=== PATIENT | female | born 1990 | race Caucasian/White ===

== ENCOUNTER 2024-01-25 10:57 | Emergency (ER) | payer MEDICAID, SELFPAY ==
[2024-01-25 11:18] VITALS: BP 137/65; PULSE 93; RESP 18; TEMP 36.8; O2SAT 98
[2024-01-25 11:21] VITALS: BP 109/72; PULSE 81; RESP 16; O2SAT 98
--- NOTE | 2024-01-25 11:46 | ED_ITS ---
HPI - Skin/Abscess/Foreign Bdy General: Chief complaint: Skin/Abscess/Foreign Body Stated complaint: spider bite Time Seen by Provider: 01/25/24 11:06 History of Present Illness: 33-year-old female presents emergency ro om is an insect bite on her upper left breast that occurred yesterday. It has been itching slightly excoriated. She thinks it may have been from a spider. She not had any fever sweats or chills. No axillary swelling. Associated symptoms: Deny chills or fever(s) Related Data Previous Rx's Medication Instructions Recorded mupirocin 2 % topical ointment 1 applic topical BID #15 grams 01/25/24 sulfamethoxazole 800 1 tab PO BID 10 days #20 tabs 01/25/24 mg-trimethoprim 160 mg tablet (Bactrim DS) Review of Systems Const: Denies: fever(s) or chills Card: Denies: chest pain Resp: Denies: dyspnea GI: Denies: abdominal pain : Denies: dysuria, urinary frequency or urinary urgency Musc: Denies: neck pain or back pain Skin/Breast: Denies: rash Physical Exam Const: COMMON NORMALS: no acute distress GENERAL APPEARANCE: cooperative and comfortable ORIENTATION/CONSCIOUSNESS: Yes awake, Yes oriented to person, Yes oriented to place and Yes oriented to time HENMT: COMMON NORMALS: normocephalic, atraumatic and hearing grossly normal bilaterally HEAD & SCALP: normocephalic and atraumatic Chest: OTHER: Small irritated area on the upper left breast with some redness mild induration centrally is slightly excoriated no purulent drainage no palpable mass With nurse present examination of the axilla and the lateral pec fold there is no lymphadenopathy or swelling noted. Resp: COMMON NORMALS: normal respiratory effort, No retractions, No use of accessory muscles and clear to auscultation bilaterally AUSCULTATION: clear to auscultation bilaterally Cardio: COMMON NORMALS: regular rate, regular rhythm and No murmurs present (Cardio) RATE: regular rate RHYTHM: regular rhythm Extremity: COMMON NORMALS: normal to inspection, capillary refill normal, no clubbing, cyanosis or edema, no calf tenderness and no pedal edema Neuro: SENSORIUM/ORIENTATION: Yes oriented to person, Yes oriented to place and Yes oriented to time Skin: COMMON NORMALS: no rashes or lesions noted GENERAL SKIN EXAM: no rashes or lesions noted Course Vital Signs: Vital signs: Vital Signs Temperature 98.2 F 01/25/24 11:18 Pulse Rate 76 01/25/24 12:06 Respiratory Rate 16 01/25/24 12:06 Blood Pressure 106/66 01/25/24 12:06 Pulse Oximetry 100 01/25/24 12:06 Oxygen Delivery Me thod Room Air 01/25/24 11:21 MDM - Skin/Abscess/Foreign Bdy Medicial Decision Making Discharge patient home on oral antibiotics apply topical antibiotics based on exam appears to be limited to the superficial area of the upper left breast. If worsens or changes return No radiology studies performed this visit Discharge Plan Discharge Patient Disposition: Home Clinical Impression: Cellulitis, Insect bite Condition: Stable Prescriptions: New Bactrim DS 800-160 mg tablet 1 tab PO BID 10 Days Qty: 20 0RF mupirocin 2 % ointment 1 applic topical BID Qty: 15 0RF Discharge Orders: Discharge ED (Routine); Ordered 01/25/24 Ordered By: Quinton Garcia Discharge Diet: Usual diet Discharge Activity: Resume usual activity Patient Instructions: Opioid Safety, Pain Management Activity Restrictions/Additional Instructions: Thank you for choosing [facility] for your healthcare needs today. It is very important that you follow up as instructed [facility] have concerns or if your condition changes or worsens in any way. You were seen today for an insect bite. There is a localized infection. Recommend that you start on oral antibiotics 1 pill twice a day for 10 days also apply topical antibiotic ointment to the region. Coding Level of Care Code ED Behavioral Modification Assistant for David Castro
[2024-01-25 12:06] VITALS: BP 106/66; PULSE 76; RESP 16; O2SAT 100
== END 2024-01-25 12:07 | disposition home or self-care (01) ==
PROVIDERS: Emergency Provider Family Medicine
DX: S20.162A Insect bite (nonvenomous) of breast, left breast, initial encounter (principal); N61.0 Mastitis without abscess; W57.XXXA Bitten or stung by nonvenomous insect and other nonvenomous arthropods, initial encounter
CPT/HCPCS: 99283

== ENCOUNTER 2024-02-19 05:16 | Emergency (ER) | payer MEDICAID, SELFPAY ==
[2024-02-19 05:29] VITALS: BP 114/78; PULSE 72; RESP 16; TEMP 36.7; O2SAT 99; BMI 21.7
--- NOTE | 2024-02-19 05:34 | ED_ITS ---
Documented by User: Denzel Prince MD 02/19/24 05:38 HPI - General Adult 2 General: Chief complaint: Allergic Reaction Stated complaint: abd pain n/v suden itchy hives Time Seen by Provider: 02/19/24 05:22 Source: patient Mode of arrival: ambulatory Limitations: no limitations History of Present Illness: 33-year-old female states she woke up th is morning with a diffuse urticarial rash that is pruritic in nature. Does have a rash to legs arms and trunk states she is not allergic to anything she has a she denies any shortness of breath difficulty breathing states she has had abdominal cramping along with vomiting this morning as well denies any fever dysuria Associated symptoms: Reports nausea, rash and vomiting; Deny chest pain, dyspnea or headache(s) Related Data Previous Rx's Medication Instructions Recorded cetirizine 10 mg tablet 10 mg PO BID #14 tabs 02/19/24 methylprednisolone 4 mg tablets in See Rx Instructions PO .COMPLEX 02/19/24 a dose pack (Medrol (Tylor)) #21 ea Allergies Allergy/AdvReac Type Severity Reaction Status Date / Time Penicillins Allergy Mild ALGY-Rash Verified 02/19/24 05:39 Review of Systems 2 Const: Denies: fever(s), chills, body aches or change in appetite ENMT: Denies: throat pain or dental pain Card: Denies: chest pain Resp: Denies: dyspnea GI: Reports: abdominal pain, nausea and vomiting; Denies: diarrhea : Denies: dysuria Musc: Denies: neck pain or back pain Skin/Breast: Reports: rash and pruritus Neuro: Denies: headache(s) All/Imm: Reports: urticaria Physical Exam 2 Const: COMMON NORMALS: no acute distress, patient oriented x3 and healthy appearing HENMT: COMMON NORMALS: normocephalic and atraumatic HEAD & SCALP: n ormocephalic and atraumatic Eye: COMMON NORMALS: conjunctivae normal CONJUNCTIVA: Yes conjunctivae normal Neck/C-Spine: COMMON NORMALS: full ROM and supple Chest: COMMONS NORMALS: normal inspection of the chest Resp: COMMON NORMALS: normal respiratory effort Cardio: COMMON NORMALS: regular rate, regular rhythm and No murmurs present (Cardio) RATE: regular rate RHYTHM: regular rhythm GI: COMMON NORMALS: Normal to inspection, nondistended, normoactive bowel sounds present, Soft to palpation, non-tender and no masses PALPATION: Yes Soft to palpation Extremity: COMMON NORMALS: full ROM Neuro: COMMON NORMALS: patient oriented x3, moves all extremities and no focal motor deficits Psych: COMMON NORMALS: mental status grossly normal, Normal thought process present and cooperative THOUGHT PROCESS: Normal thought process present Skin: COMMON NORMALS: no wounds NARRATIVE SKIN EXAM: Urticarial rash to extremities and trunk Course 2 Vital Signs: Vital signs: Vital Signs Temperature 98.1 F 02/19/24 05:29 Pulse Rate 59 L 02/19/24 08:14 Respiratory Rate 16 02/19/24 08:14 Blood Pressure 97/58 02/19/24 08:14 Pulse Oximetry 100 02/19/24 08:14 Oxygen Delivery Me thod Room Air 02/19/24 05:29 [facility] - General Adult Lab Data 02/19/24 05:43 02/19/24 05:43 Laboratory Results WBC 8.91 10^3/uL (3.29-11.43) 02/19/24 05:43 RBC 4.52 10^6/uL (3.85-5.65) 02/19/24 05:43 Hgb 14.40 g/dL (11.27-16.99) 02/19/24 05:43 Hct 42.6 % (36-47) 02/19/24 05:43 MCV 94.2 fl (85-98) 02/19/24 05:43 MCH 31.9 pg (27-33) 02/19/24 05:43 MCHC 33.8 g/dL (30-55) 02/19/24 05:43 RDW 12.2 % (12.1-15.1) 02/19/24 05:43 Plt Count 226 10^3/cmm (157-399) 02/19/24 05:43 MPV 9.6 fL (7.4-10.4) 02/19/24 05:43 Neut % (Auto) 68.0 % 02/19/24 05:43 Lymph % (Auto) 22.4 % 02/19/24 05:43 Moffat % (Auto) 6.6 % 02/19/24 05:43 Eos % (Auto) 2.2 % 02/19/24 05:43 Baso % (Auto) 0.4 % 02/19/24 05:43 Neut # (Auto) 6.04 10^3/uL (1.8-7.7) 02/19/24 05:43 Lymph # (Auto) 2.0 10^3/uL (0.8-4.8) 02/19/24 05:43 Moffat # (Auto) 0.6 10^3/uL (0.2-0.9) 02/19/24 05:43 Eos # (Auto) 0.2 10^3/uL (0.0-0.8) 02/19/24 05:43 Baso # (Auto) 0.0 10^3/uL (0.0-0.1) 02/19/24 05:43 Nucleated RBC % (auto) 0 % 02/19/24 05:43 Nucleated RBCs # 0.0 /100WBC 02/19/24 05:43 Sodium 138 mmol/L (136-145) 02/19/24 05:43 Potassium 3.7 mmol/L (3.5-5.1) 02/19/24 05:43 Chloride 108 mmol/L (98-107) H 02/19/24 05:43 Carbon Dioxide 19 mmol/L (22-29) L 02/19/24 05:43 Anion Gap 14.7 (5-19) 02/19/24 05:43 BUN 16 mg/dL (6-20) 02/19/24 05:43 Creatinine 0.6 mg/dL (0.5-0.9) 02/19/24 05:43 GFR Calculation 116.6 mL/min (90-130) 02/19/24 05:43 Glucose 105 mg/dL (65-115) 02/19/24 05:43 Calculated Osmolality 288 mOsm/kg (285-295) 02/19/24 05:43 Calcium 9.1 mg/dL (8.5-10.5) 02/19/24 05:43 Total Bilirubin 0.3 mg/dL (0.15-1.2) 02/19/24 05:43 AST 16 U/L (0-32) 02/19/24 05:43 ALT 12 U/L (0-33) 02/19/24 05:43 Alkaline Phosphatase 60 U/L (35-105) 02/19/24 05:43 Total Protein 7.4 g/dL (6.6-8.7) 02/19/24 05:43 Albumin 4.3 g/dL (3.5-5.2) 02/19/24 05:43 Globulin 3.1 g/dL (1.3-4.6) 02/19/24 05:43 Lipase 35 U/L (13-60) 02/19/24 05:43 HCG, Qual Negative (Negative) 02/19/24 05:43 Urine Color Yellow (Yellow) 02/19/24 07:31 Urine Appearance Slightly cloudy (CLEAR) 02/19/24 07:31 Urine pH 5 (5-7) 02/19/24 07:31 Ur Specific [place] 1.020 (1.005-1.030) 02/19/24 07:31 Urine Protein Trace (Negative) 02/19/24 07:31 Urine Glucose (UA) Norm (Normal) 02/19/24 07:31 Urine Ketones Negative (Negative) 02/19/24 07:31 Urine Blood Neg (Negative) 02/19/24 07:31 Urine Nitrate Negative (Negative) 02/19/24 07:31 Urine Bilirubin Neg (Negative) 02/19/24 07:31 Urine Urobilinogen Norm mg/dL (Negative) 02/19/24 07:31 Ur Leukocyte Esterase Negative (Negative) 02/19/24 07:31 Urine RBC None /hpf (0-2) 02/19/24 07:31 Urine WBC 0-4 /hpf (0-5) H 02/19/24 07:31 Ur Squamous Epith Cells 15-25 /hpf (0-5) H 02/19/24 07:31 Amorphous Sediment Not Reportable 02/19/24 07:31 Urine Bacteria 2+ /hpf (NONE) H 02/19/24 07:31 Discharge Plan Discharge Patient Disposition: Home Clinical Impression: Urticaria Condition: Stable Prescriptions: New Medrol (Tylor) 4 mg tablets,dose pack See Rx Instructions .ROUTE .COMPLEX Qty: 21 0RF Rx Instructions: orally per package directions cetirizine 10 mg tablet 10 mg PO BID Qty: 14 0RF Discharge Orders: Discharge ED (Routine); Ordered 02/19/24 Ordered By: Quinton Garcia Discharge Diet: Usual diet Discharge Activity: Increase activity as tolerated Patient Instructions: Opioid Safety, Pain Management Activity Restrictions/Additional Instructions: Thank you for choosing [facility] for your healthcare needs today. It is very important that you follow up as instructed or that you return to the Emergency Department should you have concerns or if your condition changes or worsens in any way. You were seen today after a episode of hives. These did seem to improve with medications given in the emergency room. Laboratory test did not show any significant abnormalities. Recommend that you start oral steroid taper tomorrow as well as using cetirizine 10 mg 1 twice a day for at least 7 days. Recheck if symptoms worsen or change Coding Level of Care Code ED Casting Machine Set Up Operator for Chg Fwd Documented by User: Quinton Garcia DO 02/19/24 11:55 HPI - General Adult 2 General: Chief complaint: Allergic Reaction Stated complaint: abd pain n/v suden itchy hives Time Seen by Provider: 02/19/24 05:22 Related Data Previous Rx's Medication Instructions Recorded cetirizine 10 mg tablet 10 mg PO BID #14 tabs 02/19/24 methylprednisolone 4 mg tablets in See Rx Instructions PO .COMPLEX 02/19/24 a dose pack (Medrol (Tylor)) #21 ea Allergies Allergy/AdvReac Type Severity Reaction Status Date / Time Penicillins Allergy Mild ALGY-Rash Verified 02/19/24 05:39 Course 2 Vital Signs: Vital signs: Vital Signs Temperature 98.1 F 02/19/24 05:29 Pulse Rate 59 L 02/19/24 08:14 Respiratory Rate 16 02/19/24 08:14 Blood Pressure 97/58 02/19/24 08:14 Pulse Oximetry 100 02/19/24 08:14 Oxygen Delivery Me thod Room Air 02/19/24 05:29 MDM - General Adult Medical Decision Making Care assumed at change of shift from Dr. Do. The urticaria continues to defervesce. She is doing well repeat exam lungs clear will discharge patient home with a steroid taper and cetirizine 10 mg twice daily follow-up with primary care Lab Data I reviewed the patient's lab results. 02/19/24 05:43 02/19/24 05:43 Laboratory Results WBC 8.91 10^3/uL (3.29-11.43) 02/19/24 05:43 RBC 4.52 10^6/uL (3.85-5.65) 02/19/24 05:43 Hgb 14.40 g/dL (11.27-16.99) 02/19/24 05:43 Hct 42.6 % (36-47) 02/19/24 05:43 MCV 94.2 fl (85-98) 02/19/24 05:43 MCH 31.9 pg (27-33) 02/19/24 05:43 MCHC 33.8 g/dL (30-55) 02/19/24 05:43 RDW 12.2 % (12.1-15.1) 02/19/24 05:43 Plt Count 226 10^3/cmm (157-399) 02/19/24 05:43 MPV 9.6 fL (7.4-10.4) 02/19/24 05:43 Neut % (Auto) 68.0 % 02/19/24 05:43 Lymph % (Auto) 22.4 % 02/19/24 05:43 Moffat % (Auto) 6.6 % 02/19/24 05:43 Eos % (Auto) 2.2 % 02/19/24 05:43 Baso % (Auto) 0.4 % 02/19/24 05:43 Neut # (Auto) 6.04 10^3/uL (1.8-7.7) 02/19/24 05:43 Lymph # (Auto) 2.0 10^3/uL (0.8-4.8) 02/19/24 05:43 Moffat # (Auto) 0.6 10^3/uL (0.2-0.9) 02/19/24 05:43 Eos # (Auto) 0.2 10^3/uL (0.0-0.8) 02/19/24 05:43 Baso # (Auto) 0.0 10^3/uL (0.0-0.1) 02/19/24 05:43 Nucleated RBC % (auto) 0 % 02/19/24 05:43 Nucleated RBCs # 0.0 /100WBC 02/19/24 05:43 Sodium 138 mmol/L (136-145) 02/19/24 05:43 Potassium 3.7 mmol/L (3.5-5.1) 02/19/24 05:43 Chloride 108 mmol/L (98-107) H 02/19/24 05:43 Carbon Dioxide 19 mmol/L (22-29) L 02/19/24 05:43 Anion Gap 14.7 (5-19) 02/19/24 05:43 BUN 16 mg/dL (6-20) 02/19/24 05:43 Creatinine 0.6 mg/dL (0.5-0.9) 02/19/24 05:43 GFR Calculation 116.6 mL/min (90-130) 02/19/24 05:43 Glucose 105 mg/dL (65-115) 02/19/24 05:43 Calculated Osmolality 288 mOsm/kg (285-295) 02/19/24 05:43 Calcium 9.1 mg/dL (8.5-10.5) 02/19/24 05:43 Total Bilirubin 0.3 mg/dL (0.15-1.2) 02/19/24 05:43 AST 16 U/L (0-32) 02/19/24 05:43 ALT 12 U/L (0-33) 02/19/24 05:43 Alkaline Phosphatase 60 U/L (35-105) 02/19/24 05:43 Total Protein 7.4 g/dL (6.6-8.7) 02/19/24 05:43 Albumin 4.3 g/dL (3.5-5.2) 02/19/24 05:43 Globulin 3.1 g/dL (1.3-4.6) 02/19/24 05:43 Lipase 35 U/L (13-60) 02/19/24 05:43 HCG, Qual Negative (Negative) 02/19/24 05:43 Urine Color Yellow (Yellow) 02/19/24 07:31 Urine Appearance Slightly cloudy (CLEAR) 02/19/24 07:31 Urine pH 5 (5-7) 02/19/24 07:31 Ur Specific [place] 1.020 (1.005-1.030) 02/19/24 07:31 Urine Protein Trace (Negative) 02/19/24 07:31 Urine Glucose (UA) Norm (Normal) 02/19/24 07:31 Urine Ketones Negative (Negative) 02/19/24 07:31 Urine Blood Neg (Negative) 02/19/24 07:31 Urine Nitrate Negative (Negative) 02/19/24 07:31 Urine Bilirubin Neg (Negative) 02/19/24 07:31 Urine Urobilinogen Norm mg/dL (Negative) 02/19/24 07:31 Ur Leukocyte Esterase Negative (Negative) 02/19/24 07:31 Urine RBC None /hpf (0-2) 02/19/24 07:31 Urine WBC 0-4 /hpf (0-5) H 02/19/24 07:31 Ur Squamous Epith Cells 15-25 /hpf (0-5) H 02/19/24 07:31 Amorphous Sediment Not Reportable 02/19/24 07:31 Urine Bacteria 2+ /hpf (NONE) H 02/19/24 07:31 No radiology studies performed this visit Discharge Plan Discharge Patient Disposition: Home Clinical Impression: Urticaria Condition: Stable Prescriptions: New Medrol (Tylor) 4 mg tablets,dose pack See Rx Instructions .ROUTE .COMPLEX Qty: 21 0RF Rx Instructions: orally per package directions cetirizine 10 mg tablet 10 mg PO BID Qty: 14 0RF Discharge Orders: Discharge ED (Routine); Ordered 02/19/24 Ordered By: Quinton Garcia Discharge Diet: Usual diet Discharge Activity: Increase activity as tolerated Patient Instructions: Opioid Safety, Pain Management Activity Restrictions/Additional Instructions: Thank you for choosing [facility] for your healthcare needs today. It is very important that you follow up as instructed or that you return to the Emergency Department should you have concerns or if your condition changes or worsens in any way. You were seen today after a episode of hives. These did seem to improve with medications given in the emergency room. Laboratory test did not show any significant abnormalities. Recommend that you start oral steroid taper tomorrow as well as using cetirizine 10 mg 1 twice a day for at least 7 days. Recheck if symptoms worsen or change Coding Level of Care Code ED Casting Machine Set Up Operator for David Castro
[2024-02-19 05:49] LABS: Basophils % 0.4 %; Eosinophils # 0.2 10^3/uL (0.0-0.8); Eosinophils % 2.2 %; Hematocrit 42.6 % (36-47); Lymphocytes % 22.4 %; Mean Corpuscular HGB Conc 33.8 g/dL (30-55); Mean Corpuscular Hemoglobin 31.9 pg (27-33); Mean Corpuscular Volume 94.2 fl (85-98); Mean Platelet Volume 9.6 fL (7.4-10.4); Monocytes # 0.6 10^3/uL (0.2-0.9); Monocytes % 6.6 %; Neutrophils # 6.04 10^3/uL (1.8-7.7); Nucleated Red Blood Cells % 0 %; Platelet Count 226 10^3/cmm (157-399); Red Blood Count 4.52 10^6/uL (3.85-5.65); Red Cell Distribution Width 12.2 % (12.1-15.1); White Blood Count 8.91 10^3/uL (3.29-11.43)
[2024-02-19] MEDS: methylPREDNISolone sod succ 125 mg/2 mL INJ IVP (05:52)
[2024-02-19] MEDS: ondansetron 2 mg/ML SDV 2 mL 4 MG IVP (05:53)
[2024-02-19] MEDS: diphenhydrAMINE 50 mg/mL SDV 1mL IVP (05:54)
[2024-02-19] MEDS: famotidine 20 mg/2 mL INJ 40 MG IVP (05:56)
[2024-02-19 06:07] LABS: HCG, Serum Qual Negative (Negative)
[2024-02-19 06:17] LABS: Alanine Aminotransferase 12 U/L (0-33); Albumin Level 4.3 g/dL (3.5-5.2); Alkaline Phosphatase 60 U/L (35-105); Anion Gap 14.7 (5-19); Aspartate Amino Transferase 16 U/L (0-32); Blood Urea Nitrogen 16 mg/dL (6-20); Calcium 9.1 mg/dL (8.5-10.5); Carbon Dioxide 19 mmol/L (22-29); Chloride 108 mmol/L (98-107); Creatinine Clr Calc Pharmacy 115.2909; Globulin 3.1 g/dL (1.3-4.6); Glomerular Filtration Rate 116.6 mL/min (90-130); Glucose 105 mg/dL (65-115); Lipase 35 U/L (13-60); Osmolality Calculated 288 mOsm/kg (285-295); Potassium 3.7 mmol/L (3.5-5.1); Sodium 138 mmol/L (136-145); Total Bilirubin 0.3 mg/dL (0.15-1.2); Total Protein 7.4 g/dL (6.6-8.7)
[2024-02-19 08:14] VITALS: BP 97/58; PULSE 59; RESP 16; O2SAT 100
[2024-02-19 08:37] LABS: Add Urine Culture? No; Add Urine Microscopic? YES; Bacteria Urine 2+ /hpf; Bilirubin Urine Neg (Negative); Blood Urine Neg (Negative); Glucose Urine UA Norm (Normal); Ketones Urine Negative (Negative); Leukocyte Esterase Urine Negative (Negative); Nitrate Urine Negative (Negative); Protein Urine Trace (Negative); Squamous Epithelial Cell Urine 15-25 /hpf (0-5); Urine Appearance Slightly Cloudy (CLEAR); Urine Color Yellow (Yellow); Urobilinogen Urine Norm (Negative); WBC Urine 0-4 /hpf (0-5); pH Urine 5 (5-7)
== END 2024-02-19 08:16 | disposition home or self-care (01) ==
PROVIDERS: Emergency Medicine; Emergency Provider Family Medicine
DX: L50.9 Urticaria, unspecified (principal)
CPT/HCPCS: 80053; 81001; 83690; 84703; 85025; 96374; 96375; 99284; J1200; J2405; J2919; J3490

== ENCOUNTER → 2024-04-18 09:16 | Outpatient (BNVA) | payer MEDICAID, SELFPAY | PROVIDERS: PCP Clinical Nurse Specialist Adult Health; Visit Provider Clinical Nurse Specialist Adult Health | DX: R10.9 Unspecified abdominal pain (principal); N89.8 Other specified noninflammatory disorders of vagina; R82.90 Unspecified abnormal findings in urine | CPT/HCPCS: 81000; 81025; 87070; 87077; 87086; 87184; 87205; 87491; 87591 ==

== ENCOUNTER → 2024-08-08 13:15 | Outpatient (BNVA) | payer MEDICAID, SELFPAY | PROVIDERS: PCP Clinical Nurse Specialist Adult Health; Visit Provider Clinical Nurse Specialist Adult Health | DX: D50.9 Iron deficiency anemia, unspecified (principal) | CPT/HCPCS: 82728; 83540; 84443; 85025 ==

== ENCOUNTER → 2024-08-13 09:39 | Outpatient (BNVA) | payer MEDICAID, SELFPAY | PROVIDERS: PCP Clinical Nurse Specialist Adult Health; Visit Provider Clinical Nurse Specialist Adult Health | DX: N91.5 Oligomenorrhea, unspecified (principal); R53.83 Other fatigue | CPT/HCPCS: 81025; 82306; 84702 ==

== ENCOUNTER → 2024-09-18 10:04 | Outpatient (BNVA) | payer MEDICAID, SELFPAY | PROVIDERS: PCP Clinical Nurse Specialist Adult Health; Visit Provider Nurse Practitioner Women's Health | DX: N92.6 Irregular menstruation, unspecified (principal) | CPT/HCPCS: 76830 ==

== ENCOUNTER → 2024-10-02 13:23 | Outpatient (BNVA) | payer MEDICAID, SELFPAY | PROVIDERS: PCP Clinical Nurse Specialist Adult Health; Visit Provider Nurse Practitioner Women's Health | DX: N93.9 Abnormal uterine and vaginal bleeding, unspecified (principal); Z01.419 Encounter for gynecological examination (general) (routine) without abnormal findings | CPT/HCPCS: 82670; 83001; 83002; 83036; 83520; 84146; 84402; 84403 ==

== ENCOUNTER 2024-10-15 08:58 | Outpatient (CLI) | payer MEDICAID, SELFPAY ==
--- NOTE | 2024-10-15 09:15 | MM_ITS ---
WS: [id number] DIAGNOSTIC BILATERAL DIGITAL BREAST TOMOSYNTHESIS MAMMOGRAPHY WITH CAD RIGHT breast ultrasound, limited HISTORY: N63.0 - Unspecified lump in unspecified breast COMPARISON: None available. TECHNIQUE: Bilateral craniocaudad, mediolateral oblique, and mediolateral views are submitted with tomosynthesis and SM. Spot compression RIGHT MLO and CC. Computer aided detection utilized. Breast composition: The breasts are heterogeneously dense, which may obscure small masses. Triangular marker is placed over the anterior RIGHT breast. No underlying mass identified by mammography. There is no distortion. No nipple retraction or suspicious calcifications within either breast. RIGHT breast ultrasound, limited. Ultrasound in the area of pain demonstrates no suspicious mass or cyst. There is a small benign-appearing lymph node measuring 0.6 x 0.8 x 0.4 cm. Lymph node is surrounded by very dense fibroglandular tissue. Lymph node at 9:00, 1 cm from the nipple. MM/MM diag BI tomosynthesis [id number] IMPRESSION: BI-RADS: 2 - Benign. FOLLOW UP: Age 42 Palpable area corresponds to a small benign-appearing lymph node anterior RIGHT breast.
--- NOTE | 2024-10-15 09:45 | US_ITS ---
WS: [id number] DIAGNOSTIC BILATERAL DIGITAL BREAST TOMOSYNTHESIS MAMMOGRAPHY WITH CAD RIGHT breast ultrasound, limited HISTORY: N63.0 - Unspecified lump in unspecified breast COMPARISON: None available. TECHNIQUE: Bilateral craniocaudad, mediolateral oblique, and mediolateral views are submitted with tomosynthesis and SM. Spot compression RIGHT MLO and CC. Computer aided detection utilized. Breast composition: The breasts are heterogeneously dense, which may obscure small masses. Triangular marker is placed over the anterior RIGHT breast. No underlying mass identified by mammography. There is no distortion. No nipple retraction or suspicious calcifications within either breast. RIGHT breast ultrasound, limited. Ultrasound in the area of pain demonstrates no suspicious mass or cyst. There is a small benign-appearing lymph node measuring 0.6 x 0.8 x 0.4 cm. Lymph node is surrounded by very dense fibroglandular tissue. Lymph node at 9:00, 1 cm from the nipple. US/US breast RT limited* [id number] IMPRESSION: BI-RADS: 2 - Benign. FOLLOW UP: Age 42 Palpable area corresponds to a small benign-appearing lymph node anterior RIGHT breast.
== END 2024-10-15 08:59 | disposition home or self-care (01) ==
PROVIDERS: PCP Clinical Nurse Specialist Adult Health; Visit Provider Nurse Practitioner Women's Health
DX: R59.0 Localized enlarged lymph nodes (principal); R92.333 Mammographic heterogeneous density, bilateral breasts; R92.321 Mammographic fibroglandular density, right breast
CPT/HCPCS: 76642; 77062; G0279

== ENCOUNTER 2025-03-28 20:04 | Emergency (ER) | payer MEDICAID, SELFPAY ==
--- OUTSIDE RECORDS SUMMARY | 2021-12-03 02:36 | XMS_ITS | Continuity of Care Document ---
Author Organization Count includes the [facility] Address [address] [place] [address] Phone Care Team Providers Care Operations Administrative Assistant Name Role Phone Grant Wilkerson Unavailable Unavailabl e Allergies, Adverse Reactions, Alerts Substance Reaction Status Criticality amoxicillin AnaphylaxisSwelling Active No Infor mation Penicillins Unknown Active No Information Medications Medication Instructions Dosage Effective Dates (start - stop) Status Comments ibuprofen 400 mg tablet take 1-2 tablet by ORAL route every 6-8 hours as needed with food - Active Tylenol Extra Strength 500 mg tablet take 1-2 tablet by oral route every 4 - 6 hours as needed not to exceed 8 tablets per 24hrs - Active ondansetron 4 mg disintegrating tablet take 1 tablet by oral route every 8 hours prn N/V; place on or under tongue to dissolve, then swallow - Active acyclovir 400 mg tablet TAKE ONE TABLET BY MOUTH THREE TIMES DAILY - Active nystatin 100,000 unit/mL oral suspension apply suspension to bilateral nipples and surrounding skin w/cotton ball/Qtip/clean gloved finger QID after breast feeding for up to 4 weeks - Active Vitamin 27 mg iron-0.8 mg tablet take 1 tablet by oral route every day. Taking with food can reduce stomach irritation. - Active Problems Condition Type Effective Dates (start - stop) Clini evonne Status Comments No Known Problems Procedures Procedure Date SARS-COV-2 COVID19 W/OPTIC Offic/outpt E&m Estab Low-mod 2 Psychother Ov/op-behv Mod 30 Minutes Mar URINE TEST U/A Dipstick No Micro Offic/outpt E&m Estab Mod-hi 2 Offic/outpt E&m Estab Mod-hi 2 Offic/outpt E&m Estab Low-mod 1 SARS-CoV-2 (COVID-19); Probe Technique S Offic/outpt E&m Estab Mod-hi 2 20 URINE TEST U/A Dipstick No Micro Offic/outpt E&m Estab Low-mod 0 Offic/outpt E&m Estab Low-mod 0 Cerv/vag Ca Screen Pelvic/david 20 Offic/outpt E&m Estab Low-mod 0 U/A Dipstick No Micro Offic/outpt E&m Estab Low-mod 0 U/A Dipstick No Micro Offic/outpt E&m Estab Low-mod 0 U/A Dipstick No Micro Offic/outpt E&m Estab Mod-hi 2 20 U/A Dipstick No Micro Non-stress Test Offic/outpt E&m Estab Mod-hi 2 20 U/A Dipstick No Micro Offic/outpt E&m Estab Mod-hi 2 20 TDAP VACCINE >7 IM Single Immunization Administration U/A Dipstick No Micro Offic/outpt E&m Estab [facility] 2 20 Rho D Ig Human (Rhogam) IM Injection, IM Or SC* Offic/outpt E&m Estab [facility] 2 20 U/A Dipstick No Micro Offic/outpt E&m Estab [facility] 2 19 U/A Dipstick No Micro Offic/outpt E&m Estab [facility] 2 19 Psychother Ov/op-behv Mod 30 Minutes Mar U/A Dipstick No Micro Offic/outpt E&m Estab [facility] 2 19 Psychother Ov/op-behv Mod 30 Minutes Feb [facility] Assess 15 Min W/pt; I 2018 U/A Dipstick No Micro Offic/outpt E&m Estab [facility] 9 U/A Dipstick No Micro Offic/outpt E&m Estab [facility] 2 19 Offic/outpt E&m Estab [facility] 9 Offic/outpt E&m Estab 5 Min Unbillable Visit U/A Dipstick No Micro Offic/outpt E&m Estab [facility] 9 Offic/outpt E&m Estab [facility] 2 19 URINE TEST Offic/outpt E&m Estab [facility] 9 Offic/outpt E&m Estab [facility] 9 Offic/outpt E&m Estab [facility] 2 19 Cerv/vag Ca Screen Pelvic/david 18 Offic/outpt E&m Estab [facility] 8 Offic/outpt E&m Estab [facility] 8 URINE TEST U/A Dipstick No Micro Offic/outpt E&m Estab [facility] 8 URINE TEST Offic/outpt E&m Estab Low-mod 8 Offic/outpt E&m Estab Low-mod 7 Unilab Sliding Fee Rad Exam Knee; Complt 4/more V 06 Offic/outpt E&m Estab Low-mod 6 Suppl/mat Provid-phys Not W/vi 06 Offic/outpt E&m Estab Mod-hi 2 06 Unilab Sliding Fee Offic/outpt E&m Estab Mod-ks 2 06 Offic/outpt E&m Estab Low-mod 6 Smear Prim W/intrpt; Wet Mnt W 06 Offic/outpt E&m Estab Low-mod 6 Tetanus/Diphth/Acell Pert(Tdap 06 Menigococcal Conjugate Vaccine 06 Hep A Vaccine Ped/adoles Dose- 06 Offic/outpt E&m Estab Low-mod 6 Offic/outpt E&m Estab Mod-ks 2 06 Offic/outpt E&m Estab Low-mod 6 Offic/outpt E&m Estab Mod-ks 2 06 Urin Pg Test Visual Color Comp 06 Offic/outpt E&m Estab Low-mod 6 Offic/outpt E&m New Low-mod 06 Advance Directives Directive Yes / No Effective Date File Name No Information Encounters Encounter Description Practice Location Reason(s) For Visit Diagnoses Date Provider Providers Copied on Encounter [facility], [address] [place] [address], [id number], [place] tel:[phone] [facility] No Information 2 Nancy Burns. [address] [place] [address], [id number], [place]. tel:[phone] [facility] [address] [place] [address], [id number], [place] tel:[phone] [facility] -cough (chief complaint) COVID-19 2 No Information Psychother Ov/op-behv Mod 30 Minutes [facility], [address] [place] [address], [id number], [place] tel:[phone] PED [facility] major stress (chief complaint) Adjustment disorder, unspecified type 1 Saman Boyd. [address] [place] [address], [id number], [place]. tel:[phone] Offic/outpt E&m Estab Mod-hi 2 [facility], [address] [place] [address], [id number], [place] tel:[phone] [facility] -PELVIC PAIN (chief complaint) PID (acute pelvic inflammatory disease) 1 Palmer Boyd. [address] [place] [address], [id number], [place]. tel:[phone] Offic/outpt E&m Estab Mod-hi 2 [facility], [address] [place] [address], [id number], [place] tel:[phone] [facility] Abnormal vaginal discharge with odor (chief complaint) PID (acute pelvic inflammatory disease)Mother currently breast-feeding 1 Lissette Lozoya. [address] [place] [address], [id number], [place]. tel:[phone] Offic/outpt E&m Estab Low-mod [facility], [address] [place] [address], [id number], [place] tel:[phone] [facility] - Cold Symptoms (chief complaint) Viral illness 1 Mina Caal. [address] [place] [address], [id number], [place]. tel:[phone] [facility], [address] [place] [address], [id number], [place] tel:[phone] [facility] Encounter for screening for other viral diseases 1 Nurse Only. . [facility], [address] [place] [address], [id number], [place] tel:[phone] [facility] No Information 1 Nurse Only. . [facility], [address] [place] [address], [id number], [place] tel:[phone] No Information 1 NonClinical Staff. . Offic/outpt E&m Estab [address], [address] [place] [address], [id number], [place] tel:[phone] [facility] -LLQ PAIN (chief complaint) Urinary frequencyVagina l discharge 0 No Information Offic/outpt E&m Estab [facility], [address] [place] [address], [id number], [place] tel:[phone] [facility] Low back/flank pain (chief complaint) Urinary tract infection without hematuria, site unspecifiedAcut e vaginitis 0 No Information Offic/outpt E&m Estab [facility], [address] [place] [address], [id number], [place] tel:[phone] [facility] Concern for thrush (chief complaint) Candidiasis of breast 0 No Information Offic/outpt E&m Estab [facility], [address] [place] [address], [id number], [place] tel:[phone] [facility] -6wk (chief complaint)p ostpartum check (chief complaint) Encntr for customer service receptionist exam (general) (routine) w/o abn findingsPostpar aysha care following deliveryBenign neoplasm of descending colon 0 Bandar Walker. [address] [place] [address], [id number], [place]. tel:[phone] [facility], [address] [place] [address], [id number], [place] tel:[phone] [facility] -2wk (chief complaint)p ostpartum check (chief complaint) care following deliveryEncount er for screening for other bacterial diseases Jul- 0 Bandar Walker. [address] [place] [address], [id number], [place]. tel:[phone] [facility]pt E&[facility], [address] [place] [address], [id number], [place] tel:[phone] [facility] routine (chief complaint) Encounter for screening for other bacterial diseasesGBS carrierBlood type O-Herpesviral infection, unspecifiedBipo lar disorder, unspecifiedDiet howie Counseling [facility] SurveillanceO[facility] (Adult BMI: 25 - 26) 0 Bandar Walker. [address] [place] [address], [id number], [place]. tel:[phone] Offic/outpt E&m Estab [address], [address] [place] [address], [id number], [place] tel:[phone] [facility] routine (chief complaint) Encounter for screening for other bacterial diseasesHerpesv iral infection, unspecifiedBipo lar disorder, unspecifiedBloo d type O-GBS carrierDietary Counseling and SurveillanceOve [facility] (Adult BMI: 25 - 26) 0 Eligio GRANADOS Meuy. [address] [place] [address], [id number], [place]. tel:[phone] Offic/outpt E&m Estab [address], [address] [place] [address], [id number], [place] tel:[phone] [facility] routine (chief complaint) Encounter for screening for other bacterial diseasesHerpesv iral infection, unspecifiedBipo lar disorder, unspecifiedBloo d type O-Dietary Counseling and SurveillanceO[facility] (Adult BMI: 25 - 26) 0 Eligio Ferguson. [address] [place] [address], [id number], [place]. tel:[phone] Offic/outpt E&m Estab [address], [address] [place] [address], [id number], [place] tel:[phone] [facility] routine (chief complaint) Encounter for screening for other bacterial diseasesBipolar disorder, unspecifiedHerp esviral infection, unspecifiedBloo d type O-History of urinary tract infection 0 Bandar Wakler. [address] [place] [address], [id number], [place]. tel:[phone] Offic/outpt E&m Estab [address], [address] [place] [address], [id number], [place] tel:[phone] [facility] routine (chief complaint) Encounter for screening for other bacterial diseasesEncount er for immunizationBip olar disorder, unspecifiedHerp esviral infection, unspecifiedBloo d type O-History of depression, currently Dietary Counsel[facility] Surve[facility] (Adult BMI: 25 - 26) 0 Bandar Walker. [address] [place] [address], [id number], [place]. tel:[phone] Offic/outpt E&m Estab [address], [address] [place] [address], [id number], [place] tel:[phone] [facility] routine (chief complaint) Encounter for screening for other bacterial diseasesHistory of depression, currently Bipolar affective disorder, remission status unspecifiedHerp esviral infection, unspecifiedBloo d type O- 0 Bandar Walker. [address] [place] [address], [id number], [place]. tel:[phone] [facility], [address] [place] [address], [id number], [place] tel:[phone] [facility] No Information 9 NonClinical Staff. . Offic/outpt E&m Estab Mod-hi 2 [facility], [address] [place] [address], [id number], [place] tel:[phone] [facility] routine (chief complaint) Blood type O-Bipolar disorder, unspecifiedHerp esviral infection, unspecifiedEnco unter for screening for other bacterial diseasesHx of depression, currently Persona l history of other mental and behavioral disorders 9 Duc Rebolledo. [address] [place] [address], [id number], [place]. tel:[phone] Offic/outpt E&m Estab Mod-ks 2 [facility], [address] [place] [address], [id number], [place] tel:[phone] [facility] routine (chief complaint) Encounter for screening for other bacterial diseasesScreeni ng for STDs (sexually transmitted diseases)Blood type O-Bipolar disorder, unspecifiedHerp esviral infection, unspecified 9 Chet Rosales. [address] [place] [address], [id number], [place]. tel:[phone] Psychother Ov/op-behv Mod 30 Minutes [facility], [address] [place] [address], [id number], [place] tel:[phone] [facility] depression (chief complaint) Adjustment disorder, unspecified typeEncounter for counseling 9 No Information Offic/outpt E&m Estab Mod-ks 2 [facility], [address] [place] [address], [id number], [place] tel:[phone] [facility] routine (chief complaint) Encounter for screening for other bacterial diseasesVaccina tion(s) declinedBipolar disorder, unspecifiedBloo d type O-Herpesviral infection, unspecified 9 Eligio Ferguson. [address] [place] [address], [id number], [place]. tel:[phone] Psychother Ov/op-behv Mod 30 Minutes [facility], [address] [place] [address], [id number], [place] tel:[phone] [facility] depression (chief complaint) Adjustment disorder, unspecified typeEncounter for counseling 9 No Information [facility], [address] [place] [address], [id number], [place] tel:[phone] [facility] depression (chief complaint) Adjustment disorder, unspecified typeEncounter for counseling 9 No Information Offic/outpt E&m Estab [facility], [address] [place] [address], [id number], [place] tel:[phone] [facility] routine (chief complaint) Encounter for screening for other bacterial diseasesBipolar disorder, unspecifiedHerp esviral infection, unspecifiedBV (bacterial vaginosis)Other specified bacterial agents as the cause of diseases classified elsewhereBlood type O-Vaccination(s ) declined Eligio Ferguson. [address] [place] [address], [id number], [place]. tel:[phone] Offic/outpt E&m Estab Mod-hi 2 [facility], [address] [place] [address], [id number], [place] tel:[phone] [facility] routine (chief complaint) Encounter for screening for other bacterial diseasesBipolar affective disorder, remission status unspecifiedOthe r specified bacterial agents as the cause of diseases classified elsewhere 9 Chet Rosales. [address] [place] [address], [id number], [place]. tel:[phone] [facility], [address] [place] [address], [id number], [place] tel:[phone] [facility] HFU vomiting (chief complaint) DysuriaUrinary tract infection 9 No Information Offic/outpt E&m Estab 5 Min [facility], [address] [place] [address], [id number], [place] tel:[phone] [facility] No Information 9 Nurse Only. . [facility], [address] [place] [address], [id number], [place] tel:[phone] [facility] Vaginal thrush 9 Lele Burks. [address] [place] [address], [id number], [place]. tel:[phone] Offic/outpt E&m Estab [facility], [address] [place] [address], [id number], [place] tel:[phone] [facility] -Vaginal discharge (chief complaint) Vaginal discharge 9 Lele Burks. [address] [place] [address], [id number], [place]. [phone] Offic/outpt E&m Estab Mod-hi 2 [facility], [address] [place] [address], [id number], [place] tel:[phone] [facility] Check HCG levels (chief complaint) No Information 9 No Information Offic/outpt E&m Estab [facility], [address] [place] [address], [id number], [place] tel:[phone] [facility] - check (chief complaint) No Information 9 No Information Offic/outpt E&m Estab [facility], [address] [place] [address], [id number], [place] tel:[phone] [facility] -possible UTI (chief complaint) Hospital discharge follow-upPyelon ephritis 9 No Information Offic/outpt E&m Estab Mod-hi 2 [facility], [address] [place], [place], [id number], [place] tel:[phone] [facility] -DEPRESSION (chief complaint) Other depressionGrief associated with loss of fetus 9 Palmer Boyd. [address] [place] [address], [id number], [place]. tel:[phone] Offic/outpt E&m [facility], [address] [place] [address], [id number], [place] tel:[phone] [facility] vaginal discharge/i tching (chief complaint) Cervical cancer screeningBacter ial vaginosisEncntr for customer service receptionist exam (general) (routine) w/o abn findings 8 No Information Offic/outpt E&m [facility], [address] [place] [address], [id number], [place] tel:[phone] [facility] HSV2 (chief complaint) HSV-2 (herpes simplex virus 2) infection 8 Lele Burks. [address] [place] [address], [id number], [place]. tel:[phone] Offic/outpt E&m Estab [facility], [address] [place] [address], [id number], [place] tel:[phone] [facility] Vaginal spotting/ pelvic pain (chief complaint)E ar pain (chief complaint) Delayed menstruationRLQ abdominal painPelvic pain in femaleEar pain, left 8 Lele Burks. [facility] [place], [place], [id number], [place]. tel:[phone] Offic/outpt E&m Estab [facility], [address] [place] [address], [id number], [place] tel:[phone] [facility] Possible (chief complaint)E asy bruising (chief complaint) AmenorrheaEasy bruisingMissed 8 Lele Burks. [address] [place] [address], [id number], [place]. tel:[phone] Offic/outpt E&m Estab Lowmod [facility], [address] [place] [address], [id number], [place] tel:[phone] [facility] To Establish Care: S/P D&C, Uterine mass (chief complaint) S/P dilatation and curettageFamily planning counseling 7 Palmer Boyd. [address] [place] [address], [id number], [place]. tel:[phone] [facility], [address] [place] [address], [id number], [place] tel:[phone] PCN [facility] No Information 7 No Information [facility], [address] [place] [address], [id number], [place] tel:[phone] [facility] No Information 6 [facility]. [address] [place] [address], [id number], [place]. tel:[phone] [facility], [address] [place] [address], [id number], [place] tel:[phone] [facility] No Information 6 No Information Offic/outpt E&m Estab Mod-hi 2 [facility], [address] [place] [address], [id number], [place] tel:[phone] [facility] No Information 6 No Information [facility], [address] [place] [address], [id number], [place] tel:[phone] [facility] No Information 6 No Information Offic/outpt E&m Estab Mod-hi 2 [facility], [address] [place] [address], [id number], [place] tel:[phone] [facility] No Information 6200 6 No Information [facility], [address] [place] [address], [id number], tel:[phone] [facility] No Information 5200 6 No Information Offic/outpt E&m Estab Lowmod [facility], [address] [place] [address], [id number], [place] tel:[phone] [facility] No Information 9200 6 No Information Offic/outpt E&m Estab [facility], [address] [place] [address], [id number], tel:[phone] [facility] No Information 3200 6 No Information Offic/outpt E&m Estab Mod-hi 2 [facility], [address] [place] [address], [id number], [place] tel:[phone] [facility] No Information 4200 6 No Information Offic/outpt E&m Estab [facility], [address] [place] [address], [id number], [place] tel:[phone] [facility] No Information 2200 6 No Information Offic/outpt E&m Estab Mod-hi 2 [facility], [address] [place] [address], [id number], [place] tel:[phone] [facility] No Information 0200 6 No Information [facility], [address] [place] [address], [id number], [place] tel:[phone] [facility] No Information 6200 6 No Information Offic/outpt E&m [place] Low-mod 20 [facility], [address] [place] [address], [id number], [place] tel:[phone] [facility] No Information 8200 6 No Information Family History Family Member Type Diagnosis Age At Onset Mother Problem (finding) Leukemia Problem (finding) Family history of Diabetes mellitus Maternal grandmother Problem (finding) coronary arteri osclerosis Immunizations Vaccine Date Status Comments Pfizer COVID-19 Vaccine administered Note : [facility] - My[employer] Data Import ; Source: Other Registry Tdap administered Note: Medicatio n verified by Cristóbal Alcantara RN. Injection given and pt tolerated well no adverse reaction noted. MM ; Source: New Immunization Record Flu Quadrivalent Multi-Dose Vial refused Source: New Immuniza tion Record Flu Quadrivalent Multi-Dose Vial refused Source: New Immuniza tion Record Hep A Vaccine Ped/adoles Dose- administer ed Note: 11/04/2015: Practice Management Data Backfill by NGADMIN ; Source: Other Registry Menigococcal Conjugate Vaccine administer ed Note: 11/04/2015: Practice Management Data Backfill by NGADMIN ; Source: Other Registry Tetanus/Diphth/Acell Pert(Tdap administer ed Note: 11/04/2015: Practice Management Data Backfill by NGADMIN ; Source: Other Registry Payers Payer name Insurance type Covered libertarian ID Authoriza tion(s) [id number] [facility] [employer] Prim [id number] Code 18 2016 [id number] Social History Type Description Quantity Date Captured Comments Sex Female Smoking Status No Information Sexual Orientation Don't Know Gender Identity Additional gender ca tegory or other, please specify (unknown) Chief Complaint And Reason For Visit No Information Reason For Referral Reason For Referral No Information Plan Of Treatment Date Type Action Status Goal Pap. Due on due Goal Hep C Ab w/Rflx to Hep C RNA, PCR w/Rflx to Genotype, LIPA due Goal Hep C Ab w/Rflx to Hep C RNA, PCR w/Rflx to Genotype, LIPA due Goal Hep C Ab w/Rflx to Hep C RNA, PCR w/Rflx to Genotype, LIPA due Goal Hep C Ab w/Rflx to Hep C RNA, PCR w/Rflx to Genotype, LIPA due Goal Hep C Ab w/Rflx to Hep C RNA, PCR w/Rflx to Genotype, LIPA due Goal Hep C Ab w/Rflx to Hep C RNA, PCR w/Rflx to Genotype, LIPA due Goal Hep C Ab w/Rflx to Hep C RNA, PCR w/Rflx to Genotype, LIPA due Goal Hep C Ab w/Rflx to Hep C RNA, PCR w/Rflx to Genotype, LIPA due Goal Diet Education completed Goal Diet Education completed Goal Diet Education completed Goal Diet Education completed Goal Pap. Due on due Goal Pap. Due on due Goal Pap. Due on due Goal Smoking cessation education completed Goal Smoking cessation education completed Goal Pap. Due on due Goal Smoking cessation education completed Goal Diet Education completed Goal Smoking cessation education completed Goal Diet Education completed Referral Ordered: Urine test ordered Referral Ordered: Aptima BV, Trichomonas & Candidiasis plus G&C, PCR/TMA Appointment date/timeframe: 04/02/2021 ordered Referral Ordered: UA dipstick ordered Referral Ordered: Ultrasound OB Complete Appointment date/timeframe: 1 Week ordered Referral Ordered: Ultrasound for measurement of nuchal translucency Appointment date/timeframe: Next or Monday ordered Referral Ordered: Urine Culture, Routine Appointment date/timeframe: 01/25/2019 ordered Referral Ordered: PCN Psychotherapy Referral ordered Referral Ordered: Ultrasound Pelvic Complete ordered Future Order: Lab Order 2 Hour G estational ([id number]), Sent on: Sent History Of Present Illness Encounter Date Complaint History Of Prese nt Illness -cough Angella, a 31 yea r old female, is presenting to today as a SDW for a cough ongoing for x1 days. Other symptoms include fever, sore throat, body aches, SOB, runny nose, nausea, headache, chills, and chest congestion. Patient children were exposed last week at school and are all also symptomatic. Pt is double COVID vaccinated. -PELVIC PAIN 30 year old farrukh ent presents to as SDWI with concerns of pelvic pain. Had C section 20 months ago. LMP was 03/17 which lasted 4 days. Last intercourse 03/12. Current partner on and off for the last 6 months. 03/22 she started getting an on and off vaginal soreness. A couple of days later she started getting a light creamy orange with malodorous non fishy vaginal discharge. Pain in the right lower quadrant which patient describes as an intense dull pain. She was evaluated here on 04/02/21, diagnosed with acute PID, cultures were taken and she was empirically begun on doxycycline and Flagyl, which seemed to result in less discharge and odor, but the soreness in vaginal area and right lower quadrant has increased somewhat. Patient also notes some bloating.ROS:No fevers, no chills, no coughs, some on and off SOB. Some nausea after starting antibiotics and taking them without food, but this resolved by eating and she is not had any vomiting. No diarrhea, no constipation. Normal brown stool. Denies urinary urgency, hesitancy and blood in the urine, but does note some frequency for the past 4 days. Abnormal vaginal dis charge with odor 30 y/o F here with vaginal discharge.She has weird vaginal discharge that she's never had before. Sometimes pain inside - no burning when urinates but sometimes it itches. She's nursing too. Cannot comment on dyspareunia since intercourse since onset. Ongoing 4-5 days. Discharge is thick orangeish-yellow. She has to use a panty-liner & change twice a day due to amount. Pain is 'inside in vaginal area' since the . Comes and goes. Sometimes when child sits on her stomach it hurts across the whole abdomen; even small pressure sometimes really hurts. No fevers/chills/nausea/ malaise.Last intercourse was Apr 13 w/her daughter's father . 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 Chlamydia in 2016. None since then other than BV and candidal infections.LMP 03/17/21 lasted 4 days. - Cold Symptoms 30 year old michael bingham patient presents to as SDWI with children for cold symptoms. Patient has had a cough since 01/29. She states also having PENELOPE ear pain, congestion, body aches, sore throat and headache. She has been around others with sick and similar symptoms. There is no documented fever. Denies chills, nausea, vomiting or rash. -LLQ PAIN 29-year-old michael bingham presents to UC reporting left suprapubic pain, urinary frequency and incomplete voiding x4 days. She has had some change/increase in vaginal discharge as well, concerned for vaginitis vs candidiasis. Denies nausea, vomiting, or other urinary symptoms. She has increased fluid intake. Denies fever/chills, N/V, flank pain. H/o similar, had cultures come back positive for UTI, candidiasis. Pt denies new sexual partners. She continues to breast feed at night and sometimes in the morning. Low back/flank pain 29 year old female presents as a SDWI for right lower back/flank pain x 2 days. Associated sx include vaginal discharge (creamy orange-tinged discharge), vaginal itching, cloudy urine, and foul urine odor. No forms of tx attempted thus far. She has h/o recurrent kidney infections. Pt is sexually active - no new partners. No fever/chills, N/V, abdominal pain, hematuria, dysuria, urinary frequency, pelvic pain/pressure, dyspareunia, or bleeding after intercourse. Pt is 11 wks post and . Concern for thrush 29 year old renard pitts presents as a SDWI w/ concern for linda. Patient is asymptomatic herself, no nipple irritation, redness, skin peeling/scaling. She states that her breast fed infant was treated for oral thrush on 10/03/19 but continues to experience sx. Mother was not treated at that time and believes she is spreading thrush back to her child through breast feeding. -6wk 29 year old 023 is here today for 6 week visit. She delivered 08/12/2028 repeat C/S with BTL, NBF weighing 6#13oz named Adri. C/S incision site is intact, clear, well healed. Patient is exclusively and states it is going well. No breast complaints today. Normal PE done today. PAP is up to date, thus not repeated at time of pelvic exam. Next due in 04/2021. Overall patient states she is doing well. check The patient has no feeding complications, nursing difficulties, breast problems, vaginal bleeding, urinary problems or bowel problems. The patient has no history of domestic violence or gestational diabetes. She has not resumed sexual activity, work or exercise. She has no section incisional drainage or section incisional pain. check The patient has no feeding complications, nursing difficulties, breast problems, vaginal bleeding, urinary problems or bowel problems. The patient has no history of domestic violence or gestational diabetes. She has not resumed sexual activity, work or exercise. She has no section incisional drainage or section incisional pain. -2wk 29 year old 023 is here today for 2 week visit. She delivered 08/12/2028 repeat C/S with BTL, NBF weighing 6#13oz named Adri. C/S site examined, steri strips were removed. Incision site is intact, clear, well healed. Patient is exclusively and states it is going well. No breast complaints today. EPDS score today: 30. Overall patient states she is doing well. routine This is a 28 ye ar old female (C/S x2), EGA: 39 weeks, 0 days; DAIJA: 08/19/19 [based on 5w US] [facility]. Patient reports good movements, meeting daily kick counts. Denies vaginal discharge/leaking, or contractions. She has no complaints today. Patient is currently taking vitamins, Acyclovir 400mg for HSV prophylaxis, and Clindamycin 150mg [for daily UTI prevention]. REPEAT C/S:Repeat C/S with BTL scheduled for 08/13/2019. Sterilization consent was signed 05/15/19. C/S preop orders explained in detail and given to patient. Question were answered, patient expressed understanding. Patient has pre-op at hospital today at 1pm. routine This is a 28 ye ar old female (C/S x2), EGA: 38 weeks, 1 days; DAIJA: 08/19/19 [based on 5w US] presenting [facility] for routine check. Patient reports good movements, meeting daily kick counts. Denies leakage of fluids. Patient denies any other complaints. Denies any recent hospital visits. Patient is currently taking vitamins, Acyclovir 400mg for HSV prophylaxis, and Clindamycin 150mg [for daily UTI prevention]. REPEAT C/S:Repeat C/S with possible BTL scheduled for 08/13/2019. Sterilization consent was signed 05/15/19. routine This is a 28 ye ar old female (C/S x2), EGA: 36 weeks, 0 days; DAIJA: 08/19/19 [based on 5w US] presenting [facility] for routine check. Patient reports good movements, meeting daily kick counts. Patient reports noticing a pink streak and lower abdominal/pelvic cramping that began this morning. They are radiating to her back. Patient states they have worsened since she got to the clinic. She has not had intercourse in the past 24 hours. Patient states they are not consistent. Patient has not regularly had BH contractions. Denies leakage of fluids. Patient denies any other complaints. Denies any recent hospital visits. Patient is currently taking vitamins, Acyclovir 400mg for HSV prophylaxis, and Keflex 500mg [for daily UTI prevention].GBS swab today. No allergy to PCN.REPEAT C/S:Patient desires repeat C/S on August 13, 2019 with BTL. Consent was signed 05/15/19. Paperwork submitted. routine The patient is a 28-year-old female, with prior C/S x2, who presents today for routine care. EGA: 33 weeks, 2 days; DAIJA: 08/19/2019, based off 5 week ultrasound. Current medications include vitamin, Acyclovir 400 mg BID (due to history of HSV 2), and Keflex 500mg daily UTI prevention. Patient confirms good movement. Patient states she noticed discharge that was light orange in color this morning. Denies any recent intercourse. She states no vaginal bleeding or foul odor. She denies any vaginal bleeding, or contractions. She has no other complaints or concerns. The patient has Bipolar disorder, which is managed by a therapist at [facility]. She is also being seen by the in-house [facility] here, last appt 04/24/19. Symptoms are stable; she is not currently on medication.REPEAT C/S:Patient desires repeat C/S on August 13, 2019 with BTL. Consent was signed 05/15/19. Paperwork submitted. routine The patient is a 28-year-old female, with prior C/S x2, who presents today for routine care. EGA: 31 weeks, 2 days; DAIJA: 08/19/2019, based off 5 week ultrasound. Current medications include vitamins, Acyclovir 400 mg BID (due to history of HSV 2), and Keflex 500mg QID (due to UTI). Patient confirms good movement. Denies any vaginal bleeding/discharge, or contractions. She has no other complaints or concerns. The patient has Bipolar disorder, which is managed by a therapist at [facility]. She is also being seen by the in-house [facility] here, last appt 04/24/19. Symptoms are stable; she is not currently on medication.REPEAT C/S:Patient desires repeat C/S on August 13, 2019 with BTL. Consent was signed 05/15/19. Paperwork submitted. routine The patient is a 28-year-old female, with prior C/S x2, who presents today for routine care. EGA: 29 weeks, 3 days; DAIJA: 08/19/2019, based off 5 week ultrasound. Current medications include vitamins and Acyclovir, 400 mg, BID (due to history of HSV 2). Patient confirms good movement. Denies any vaginal bleeding/discharge, contractions or dysuria, hematuria, or pain/burning on urination. She has no other complaints or concerns. The patient has Bipolar disorder, which is managed by a therapist at [facility]. She is also being seen by the in-house [facility] here, last appt 04/24/19. Symptoms are stable; she is not currently on medication.REPEAT C/S:Patient desires repeat C/S on August 19, 2019 with BTL. Consent was signed 05/15/19. routine The patient is a 28-year-old Rh negative female, with prior C/S x2, who presents today for routine care. EGA: 26 weeks, 2 days; DAIJA: 08/19/2019, based off 5 week ultrasound. Current medications include vitamins and Acyclovir, 400 mg, BID (due to history of HSV 2). Patient confirms good movement. She admits that she went to the hospital yesterday, 05/14/2019, for back pain that resulted in a UTI that is spreading to her kidneys. According to the hospital note, she was also having dysuria for the past 3-4 weeks. She is currently on Keflex 500 mg 1 tablet daily for 7 days. She reports feeling achy to her lower abdomen and pelvis. Patient denies dysuria, hematuria, or pain/burning on urination. She has no other complaints or concerns. The patient has Bipolar disorder, which is managed by a therapist at [facility]. She is also being seen by the in-house [facility] here and is scheduled to meet with the [facility] today. Symptoms are stable; she is not currently on medication. routine The patient is a 28-year-old Rh negative female, with prior C/S x2, who presents today for routine care. EGA: 23 weeks, 2 days; DAIJA: 08/19/2019, based off 5 week ultrasound. Current medications include vitamins and Acyclovir, 400 mg, BID (due to history of HSV 2). Patient confirms good movement. She denies any hospital visits since last visit here. She reports feeling achy to her lower abdomen and pelvis. She adds that she had back pain this morning. Patient denies dysuria, hematuria, or pain/burning on urination. She has no other complaints or concerns. The patient has Bipolar disorder, which is managed by a therapist at [facility]. She is also being seen by the in-house [facility] here and is scheduled to meet with the [facility] today. Symptoms are stable; she is not currently on medication. routine 28 year old te dial (C/S x2), EGA: 19 weeks, 2 days, DAIJA: 08/19/2019 [based on 5 week US] [facility] for routine check. is complicated by Rh negative status and prior . Patient reports good movements.Denies vaginal bleeding, leakage of fluids, contractions, abdominal or pelvic pain. Patient has no complaints today. Denies any recent hospital visits. Patient is currently taking vitamins and Acyclovir 400mg BID.Patient previously reported that she had quit tobacco usage, but states at today's visit that she smoked 1 cigarette this week. Cessation pamphlet provided to patient. routine 28 year old te dial (C/S x2), EGA: 15 weeks, 2 days, DAIJA: 08/19/2019 [based on 5 week US] presents [facility] for routine check. is complicated by Rh negative status and prior . Patient reports (+) movements, states she's starting to feel kicks and I can feel him stretch. Patient reports she's been experiencing heartburn intermittently. Denies vaginal bleeding, leakage of fluids, contractions, abdominal or pelvic pain. Patient denies any other complaints. Denies any recent hospital visits. Medications patient is currently taking are vitamins and Acyclovir 400mg BID.Discussed indications and benefits of having flu immunization. Patient declines flu immunization this year, states she has never received the flu vaccine and she does not vaccinate her children with the flu immunization. Pt states that she will NOT be getting flu vaccine this .Reviewed most recent labs and ultrasound report with patient. Informed patient of placenta previa finding; precautions give and instructed pelvic rest. Advised patient to start taking Flagyl for treatment of BV. Patient was previously treated for yeast in December 2017. Pt requests a general note for weight/lifting restrictions. routine The patient is a 28-year-old female, [id number], who presents today for an initial visit. LMP was 11/14/2018, giving an EGA of 11 weeks, 0 days and an DAIJA of 08/21/2019. Patient was seen in the ER for abdominal cramping and had an ultrasound confirming her and dating. She has already completed lab work when being seen for follow-up on confirmation of . Patient states that she had a kidney infection just before I got and was on antibiotics when I got . She was diagnosed with a UTI last week and is currently on Keflex. She also reports being diagnosed with BV recently; however, she was untreated as she is in the first trimester of her . Patient complains of severe nausea, for which she has been prescribed Zofran (4 mg). She has been taking the Zofran with relief. Patient denies vomiting. She reports occasional headaches. She denies fevers, rashes, dizziness, vision changes, abdominal pain, breast tenderness, vaginal bleeding/discharge, dysuria, hematuria, or pain/burning on urination. HISTORY:This is the patient's 5th . She has had two full-term deliveries via , one TAB, and one SAB. Patient reports her spontaneous was secondary to being under a lot of stress. She notes she had to be induced at 41 and a half weeks in her first , then required a primary due to distress. She had a hemorrhage after delivering her second child. Patient denies history of gestational diabetes, gestational hypertension, or any other complications. MEDICAL HISTORY:Borderline schizophrenia and very mild manic bipolar disorder - previously on Latuda, [place], and Haloperidol. Patient reports symptoms are manageable.Diagnosed with HSV 2 in 2012; no other history of STD's or known exposure. Normal pap done in April 2018. No history of abnormal paps.Surgical history includes one D&C and two c-sections; no other surgeries.SOCIAL HISTORY:Previous tobacco and alcohol use. Patient denies current drug use, including marijuana use. Patient confirms she is enrolled in [employer] and taking classes through them.FAMILY HISTORY:Cancer (chronic lymphatic leukemia) in mother, cardiac disease in maternal grandmother, and diabetes in a distant relative.GENETIC SCREENING:Genetic screening questionnaire is significant for autism (patient's son) and gastroschisis (nephew); and a niece with a brain defect that required surgery at 9 yrs of age, otherwise negative. FOC is not of advanced paternal age (under [id number]). PLANS: plans include breast feeding. Patient states that it is very possible that she may desire sterilization. HFU vomiting 28-year-old preg nant female presents as a HFU for vomiting. Pt arrived to [facility] 01/21/19 for evaluation of acute nausea and emesis. Pt was unable to keep water down during that same day. She was also experiencing diarrhea (watery), no blood. She felt warm but denies fever, chills or sweats. Pt denied vaginal bleeding, discharge, dysuria, hematuria or urinary frequency.She was given IV Zofran which resolved her sx. She was given IV fluids in the ER and was able to tolerate p.o. fluids after her Zofran administration. Blood work was reassuring. She did have slight leukocytes of 13,00 but did not found to have a serious bacterial infection. Patient LMP 11/14/18. She is followed by [facility] for care.She has difficulty with eating due to lack of appetite. She is able to keep food and fluids down when she does eat. She does have some burning with urination x 5 days. H/o yeast infection. Pt states [facility] lost her urine so culture unavailable. She has an initial appt with [facility]. Denies any other urinary sx or vaginal sx. -Vaginal discharge 28 year old renard pitts, currently , presents today regarding concerns of vaginal discharge x 7 days. Discharge is described as whitish in coloration with associated foul odor. Additional symptoms include: vaginal irritation and internal sensation of pulling within the lower abdomen. No associated dysuria, flank pain, pelvic pain or vaginal bleeding/spotting. No forms of OTC treatment have been attempted. Patient reports evaluation at [facility] late last month regarding pelvic cramping, completing lab work up and OB U/S at that time. :- Currently 7 weeks - LMP: 11/12/18- - Management of current : [facility] in [place], [place]- vitamins: yes Check HCG levels 28 year old fem jayro presents to evaluate serum HCG levels. Patient had a positive test during visit of 12/18/18. Hx of 1 miscarriage two years ago. Total of 2 successful pregnancies. She reports the only complication was a kidney infection at 4 months gestation during her first successful . LMP was 11/14/18. She has appt scheduled at [facility] 01/16/19 with Elena Amin. She was at [facility] ER about a week ago as she woke up that same morning w/ upper and lower extremity numbness, which was ultimately short-lived. She states she did not feel well and suspected it had something to do with her . At the ER she had HCG levels drawn and an ultraound was done that showed an embryo in the uterus, but no heartbeat. She was advised to have repeat HCG levels done in about a week. She reports that no internal bleeding detected. Associated sx include low back ache. She feels pain is more annoying than painful . Denies any current extremity weakness or numbness. She reports having a soft mattress at home. She does not have finances to get a new mattress. - check 28 year old te dial pt presents to clinic to discuss check .Pt reports she took 2 home tests which were both positive. Pt states her last menstrual cycle was 11/14/18 which lasted only 3 days and was unusually light, and her cycle normally lasts around 5 days. Her second to last menses was 10/15/18. She denies any current or recent use of control. Pt knows who the father is and states they recently broke up last week after 7 months together. Pt has a good support at home. Pt states she typically goes to [facility] but she wants to follow up OB specialist, Dr. Glen Lopez who is currently caring for her sister. Pt had one previous miscarriage 2 years ago during her 1st trimester, with 2 successful pregnancies. Her only complication was a kidney infection at 4 months gestation during her first successful . She is interested in additional STI testing. Pt does not have an appointment yet for follow up with her primary provider, Dr. Chakraborty. She is not currently taking vitamins. -possible UTI 28 year-old michael bingham presents to the clinic status post visit to [facility] ER on 11/02/18 where she was found to have pyelonephritis and treated with Keflex and Ondansetron. Her initial symptoms were right flank pain, nausea and fever. She met SIRS criteria and was further evaluated and work up ruled out urosepsis. She continues to take her antibiotic and states she is present today due to doctor's orders upon discharge. She reports feeling better already but still has some lower pelvic discomfort. -DEPRESSION 28-year-old michael bingham reports diagnoses of bipolar disorder previously followed by Dr. Sanchez at [facility]. Prior treatments include lithium, Haldol, Seroquel, Latuda and Paxil.Patient reports increasing depression since a miscarriage approximately one year ago at 9 weeks gestation. She continues to have difficulty since the loss and reports crying frequently and lacks motivation. She receives comfort from her cat and would like a letter for a slot supervisor pet. She has not received counseling but is interested in a referral.PMH: Bipolar disorder, dissociative disorder, schizophrenia (?), seizures (?)Social Hx: with significant other/boyfriend. Has a 6-year-old son and 8-year-old daughter whom she recently regained custody of. vaginal discharge/it kevin (comments) Pt presents to clinic for cervical CA screening; also c/o increased malodorous vaginal discharge x 2 weeks. H/O similar with dx of BV, none recent. Denies new partner or concern for STI exposure. States h/o abnormal pap but not for a long, long time. Denies other vaginal sx, abdominal pain, fever, N/V, urinary sx, dyspareunia, bleeding after intercourse. vaginal discharge/itching Her sy mptoms began 2 Weeks ago. She states the problem has remained unchanged. The symptoms are reported as being moderate. Presently the patient is experiencing vaginal odor and vaginal discharge. patient denies new partner or recent antibiotics. The patient has a history of abnormal PAP, bacterial vaginosis, herpes genitalis and yeast. The patient has no history of chlamydia, gonorrhea or trichomoniasis. Her symptoms are not aggravated by anything. Her symptoms are not relieved by anything. She denies fever, dyspareunia, vaginal burning, dysuria, urinary frequency, genital lesions, genital rash, genital ulcers or itching skin of vaginal/groin. HSV2 27 year old michael bingham presents today regarding concerns for acyclovir refill for vaginal herpes. The patient reports receiving an initial diagnosis of herpes simplex virus type 2 approximately 5 years ago following an outbrerak of genital lesions and performance of a vaginal swab. She was subsequently placed on Acyclovir for treatment with good symptomatic improvement. Due to recurrent outbreaks, the patient was eventually placed on Acyclovir 400 mg twice daily for prophylaxis, which she has taken on a consistent basis for the past 4+ years. Patient has taken the final dose of her remaining Acyclovir prescription as of yesterday. She requests a refill of the medication for continued prophylaxis due to the quick development of outbreaks in the vaginal region without the antiviral treatment. Patient estimates that her last outbreak had occurred 2-3 years ago, attributing good control to ongoing regular Acyclovir use. Initial diagnosis of HSV 2 had occurred at [facility] (with vaginal swab done) then continued through [facility] in [place], [place] approx. 5 years ago. Last patient STD screening had occurred approximately 3 years ago following her last . Ear pain Patient also rep orts concerns of left-sided ear pain x 7 days. Associated symptoms include: episodic dizziness, nausea and headaches focused over the superior scalp. Pertinent negatives include: fever, ear discharge, cough, external ear pain, vision changes and external ear pain. Vaginal spotting/ pelvic pain 27 year old female presents today as a same day work in regarding concerns of delayed menstruation. The patient reports that she is currently 1+ week late for her expected menstrual period. She has begun to experience spotting over the past 24 hours, which she describes as unusually thick and with brownish discoloration. Additional symptoms include: left-sided pelvic discomfort. The patient is sexually active and believes that she could possibly be . LMP: 12/06/17 BUILDING CARPENTER: 11/07/17 Possible 27 year old renard pitts presents today regarding concerns of possible . The patient reports that she is currently 7 days late for her expected menstrual period on 08/01/17. She has had unprotected sexual intercourse in the recent past, and feels that she may be . Patient has completed multiple home urine tests with negative findings leading up to today's exam. The patient reports experiencing a single episode of spotting occurring last week on 07/30/17. She has experienced a miscarriage previously. Patient denies false negatives on home tests completed during prior pregnancies.Patient has been followed by [facility] for previous OB care, and would prefer to return to them, if indicated. Pertinent positives include nausea and constipation. Pertinent negatives include: dysuria, urinary frequency, vaginal discharge, vomiting and diarrhea. 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 Miscarriage: 02/14/17. Easy bruising The patient repo rts experiencing unexplained easy bruising over all extremities x 2 weeks. She provides the example of developing bruising over her right lower leg after spending a short period leaning against a couch with the affected region. The patient has not previously completed lab work up regarding this concern.Pertinent negatives: Palpitations. To Establish Care: S /P D&C, Uterine mass 26 year old female presents today to establish care with a new primary memory care program director, as well as regarding concerns of a uterine mass. The patient reports experiencing a miscarriage approximately 3 months ago on 02/16/17. She states she was told that a mass was discovered within her uterus during the completion of a D&C when she return for followup at [facility]. The patient was advised during a follow up with [facility] in early February 2017 that pathology completed during her D&C had returned with benign findings. The patient states that she was instructed to follow up with her primary memory care program director, but was otherwise given no instructions for follow up. Her mass remains in place at this time. The patient reports that she has experienced two menstrual periods thus far following her 01/2017 D&C. OB HX:- The patient is A2 (, miscarriage).- The patient is currently sexually active. She is on no form of control. The patient would like to get . - Last PAP: 2016 at [facility] in [place], [place]. Social Hx:- Drug use: Negative (last use 17 months ago)- Alcohol: Negative.- Marijuana use: last use 1+ week ago and has plan to quit - Tobacco use: Negative.Diagnostics:- Ultrasounds completed 02/14 and 02/15/17 reveal demise at 9 weeks. - Ultrasound completed 02/14/17 also reveals: Suggestion of a small ill-defined hypodense area adjacent to the gestational sack. Functional Status Date Functional Assessmen t No Information Instructions Date Instruction Additional Infor alvaro Pt will follow up in two weeksPt will consider what boundaries she can put in place to create more time for herself Pt will reach out to friends and family when feeling overwhelmed Related to Adjustment disorder, unspecified type Patient advised about exercise R elated to Dietary Counseling and Surveillance Patient advised about exercise R elated to Dietary Counseling and Surveillance Patient advised about exercise R elated to Dietary Counseling and Surveillance Diet Education Related to Dieta ry Counseling and Surveillance Diet Education Related to Dieta ry Counseling and Surveillance Diet Education Related to Dieta ry Counseling and Surveillance Pt to continue movin g forward with process to re-instate social security benefits and seek out new personal advocate to assist in this process. Pt to follow-up with [facility] during remainder of care at [facility]. Related to Adjustment disorder, unspecified type influenza vaccine - Patient declines r eferral to [facility] for Level II U/S due to AFP results being WNL. Related to Supervision of high risk in second trimester The Flu (Influenza) vaccination was declined today. This vaccine is available without an appointment if you would like to receive the vaccine at a later date. Related to Vaccination(s) declined Pt to ensure balance d self-care with positive stress of upcoming move into new apartment in new location this week. Pt to follow-up with [facility] during next routine care appointment, and contact [facility] if needed prior to this scheduled appointment. Related to Adjustment disorder, unspecified type Diet Education Related to Dieta ry Counseling and Surveillance Patient advised about exercise R elated to Dietary Counseling and Surveillance Pt to follow through with services at [facility] and upcoming appointments with Melody Romero for resources and housing/financial support. Pt to also follow-up with [facility] during routine care. Related to Adjustment disorder, unspecified type The Flu (Influenza) vaccination was declined today. This vaccine is available without an appointment if you would like to receive the vaccine at a later date. Related to Vaccination(s) declined Patient advised about exercise R elated to Dietary Counseling and Surveillance HIV and other routine t ests risk factors identif ied by history anticipated course of c are toxoplasmosis precau tions (cats / raw meat) indications for ultrasound environmental / work hazards tobacco (ask, advise , assess, assist and arrange) alcohol illicit / recreational drugs use of any medicatio ns (including supplements, vitamins, herbs, OTC drugs) seat belt use childbirth classes / hospital facilities Diet Education Related to Dieta ry Counseling and Surveillance Diet Education Related to Dieta ry Counseling and Surveillance Assessments Type Assessment Date No Information Patient Care Teams Name Effective Dates (start - stop) Status Members No Information
--- OUTSIDE RECORDS SUMMARY | 2024-01-31 09:50 | XMS_ITS | Continuity of Care Document ---
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 Name Role Phone Kaci Rebolledo MD Unavailable Unavailable Allergies, Adverse Reactions, Alerts Substance Reaction Status Criticality Penicillins Hives / Skin Rash Active No Informa tion Medications Medication Instructions Dosage Effective Dates (start - stop) Status Comments metronidazole 500 mg tablet take 1 tablet by oral route every 12 hours 500 MG - Active acyclovir 400 mg tablet take 1 tablet by oral route every 8 hours 400 MG - Active Advance Directives Directive Yes / No Effective Date File Name No Information Encounters Encounter Description Practice Location Reason(s) For Visit Diagnoses Date Provider [facility] [place], [address] [place] [address], [id number], tel:[phone] [facility] No Information Amaury Clemons. [address] [place] [address], [id number], . tel:[phone] [facility] [place], [address] [place] [address], [id number], [place] tel:[phone] [facility] [employer] No Information [facility] Sandra. [address] [place] [address], [id number] , . tel:[phone] [facility] [place], [address] [place] [address], [id number], tel:[phone] [facility] establish care (chief complaint) Encntr screen for infections w sexl mode of transmissEncounter for screening for diabetes mellitusBody mass index (BMI) 23.0-23.9, adultWeight gainAbnormal mensesFamily history of ovarian cancerFamily history of breast cancer [facility] Sandra. [address], [id number] , [place]. [phone] [facility] [place], [address] [place] [address], [id number], [place] tel:[phone] [facility] Pachy/IOP Ck (chief complaint) Other vitreous opacities, bilateral Martinez Jesika. [address], [place], [address], [place]. tel: [phone] [facility] [place], [address] [place] [address], [id number], [place] tel:[phone] [facility] ocular discomfort (chief complaint) Visual discomfort, bilateral Martinez Jesika. [address], [address], [address], [place]. tel: [phone] Family History Family Member Type Diagnosis Age At Onset Problem Family history of Cancer, ov mimi Problem Family history of Diabetes m ellitus Problem Family history of Cancer, br east Immunizations Vaccine Date Status Comments Influenza, 0.5 mL (single-do se syringe) Preservative Free refused Source: New I mmunization Record COVID-19, mRNA,LNP-S,PF administered Sour ce: Other Registry Tdap administered Source: Other R egistry HepA-Ped 2 Dose administered Source: Othe r Registry HPV, NOS administered Source: Other R egistry MCV4, NOS administered Source: Other R egistry Tdap administered Source: Other R egistry HepA-Ped 2 Dose administered Source: Othe r Registry DTP administered Source: Other R egistry MMR administered Source: Other R egistry Polio-Oral administered Source: Other R egistry HepB-Peds administered Source: Other R egistry HepB-Peds administered Source: Other R egistry HepB-Peds administered Source: Other R egistry DTP administered Source: Other R egistry Polio-Oral administered Source: Other R egistry MMR administered Source: Other R egistry Hib, NOS administered Source: Other R egistry Hib, NOS administered Source: Other R egistry DTP administered Source: Other R egistry Hib, NOS administered Source: Other R egistry DTP administered Source: Other R egistry Polio-Oral administered Source: Other R egistry Hib, NOS administered Source: Other R egistry DTP administered Source: Other R egistry Polio-Oral administered Source: Other R egistry Payers Payer name Insurance type Covered green party ID Kurt fernandez(s) [facility] CI [id number] [facility] [id number] [facility] CI [id number] [facility] [id number] Social History Type Description Quantity Date Captured Comments Alcohol Use Details Unknown Caffeine Use Details Unknown Tobacco Use Status Smoking Status No Information Sex Female Sexual Orientation Don't Know Gender Identity Female Chief Complaint And Reason For Visit No Information Plan Of Treatment Date Type Action Status Goal HPV. Due on due Goal Hep C Ab w/Rflx PCR Genotype ,LIPA. Due on due Goal Hep C Ab w/Rflx to Hep C RNA, Quant, RT-PCR. Due on due Goal Vision Screen. Due on due Goal Tdap due Goal Unhealthy drug use screening . Due on due Goal HIV 1/0/2 Ag/Ab with Reflex due Goal Depression screening. Due on due Goal Substance Abuse Screen. Due on due Goal Influenza vaccine. Due on due Goal Pap/HPV testing. Due on due Goal Hepatitis C screening. Due o n due Goal Tobacco Use Screening. Due o n due Goal Lifestyle education regardin g diet ordered Goal Vision Screen. Due on due Goal Influenza vaccine. Due on due Goal Pap/HPV testing. Due on due Goal Hepatitis C screening. Due o n due Goal Unhealthy drug use screening . Due on due Goal Hep C Ab w/Rflx to Hep C RNA, Quant, RT-PCR. Due on due Goal HPV. Due on due Goal Hep C Ab w/Rflx PCR Genotype ,LIPA. Due on due Goal Depression screening. Due on due Goal Substance Abuse Screen. Due on due Goal Tdap due Goal Lifestyle education regardin g diet completed Goal Vision Screen. Due on due Goal Hepatitis C screening. Due o n due Goal Pap/HPV testing. Due on due Goal HPV. Due on due Goal Influenza vaccine. Due on due Goal Td vaccine. Due on due Goal Unhealthy drug use screening . Due on due Goal Tdap. Due on due Goal Hep C Ab w/Rflx to Hep C RNA, Quant, RT-PCR. Due on due Goal HIV 1/0/2 Ag/Ab with Reflex. Due on due Goal Hep C Ab w/Rflx PCR Genotype ,LIPA. Due on due Goal Depression screening. Due on due Goal Substance Abuse Screen. Due on due Goal HIV 1/0/2 Ag/Ab with Reflex. Due on due Goal Vision Screen. Due on due Goal Hepatitis C screening. Due o n due Goal Substance Abuse Screen. Due on due Goal PAP. Due on due Goal Unhealthy drug use screening . Due on due Goal Tdap. Due on due Goal Td vaccine. Due on due Goal Depression screening. Due on due Goal Influenza vaccine. Due on due History Of Present Illness Encounter Date Complaint History Of Prese nt Illness establish care No allergies to foodSocial history -employment- yes -hobbies- no -lives with- multi family residence: mom, cousin, grandparent, and kidsFamily history- Cancer CLL, maybe Lupus (Mother), Diabetes (Mother's side of family), Breast Cancer and Ovarian Cancer (Mother's side of family distant relatives)Medical history- Ovarian Cysts 2016, anxiety; bipolarSurgical history- 3 C-sections OB history - 3 kidsScreenings -STI screening- no -PAP- 2020 - abnormal-always has had BV and yeastVaccines: not dueThis month, had two periods, 12 days apart. Jun 13, then stated again the . She feels like she has BV. Stopped a few days later.She is worried bc she is also having breast tenderness.4-6 years ago, had a lot of hormonal issues but she was on control.She had a tubal ligation. Pachy/IOP Ck Pt c/o floaters x's intermit. Also seeing black/white spots on top of floaters x's intermit. Pressure , ache OU x's yrs. Pt denies using gtt's. No other ocular concern at this time. ocular discomfort due to blur va OU c srx intermittent x few mo. Instructions Date Instruction Additional Infor alvaro Lifestyle education regarding di et Related to Body mass index [BMI] 23.0-23.9, adult Giving encouragement to exercise Related to Body mass index [BMI] 23.0-23.9, adult Impression/Plan Impression/Plan Assessments Type Assessment Date No Information
[2025-03-28 20:07] VITALS: BP 140/96; PULSE 96; RESP 18; TEMP 36.8; O2SAT 92; BMI 24.7
[2025-03-28] MEDS: metoclopramide 5 mg/mL SDV 2 mL 10 MG IVP (21:27)
[2025-03-28] MEDS: diphenhydrAMINE 50 mg/mL SDV 1mL 25 MG IVP (21:27)
[2025-03-28 21:39] VITALS: O2SAT 96
--- NOTE | 2025-03-28 22:11 | W.ED.ALLEREA ---
HPI - Allergic Reaction General: Chief complaint: Allergic Reaction Stated complaint: allergic reaction SOB rash Time Seen by Provider: 03/28/25 20:22 History of Present Illness: HPI narrative: Patient is a 34-year-old female who presents to the ED with an acute episode of hives, redness, and itchiness. She reports associated symptoms including mild tongue swelling, nasal congestion, and neck tightness described as a squeezing sensation. She took 2 Benadryl approximately 20 minutes prior to arrival with minimal relief of itchiness and some improvement in breathing, though the rash persists. The symptoms began while she was driving with her children. Patient reports this is the 10th or 11th similar episode she has experienced, with the first occurrence in January of last year. Previous episodes were typically accompanied by abdominal cramping and diarrhea, which are notably absent in this presentation. She denies any known exposures, new medications, or new foods. She reports having consumed meat yesterday but not today. Patient denies any history of requiring an EpiPen or steroids for previous reactions, though she mentions receiving steroids during a prior ED visit for similar symptoms. She expresses concern about steroid treatment due to mood-altering effects she experienced previously Related Data Previous Rx's ?Medication ?Instructions ?Recorded cetirizine 10 mg tablet (Zyrtec) 10 mg PO DAILY #7 tabs 03/28/25 diphenhydramine HCl 25 mg capsule 25 mg PO Q6H #20 caps 03/28/25 (Benadryl) epinephrine 0.3 mg/0.3 mL 0.3 mg (0.3 mL) IM Q20M PRN 03/28/25 injection, auto-injector (EpiPen) anaphylaxis #1 ea famotidine 20 mg tablet (Pepcid) 20 mg PO Q12H #14 tabs 03/28/25 Allergies Allergy/AdvReac Type Severity Reaction Status Date / Time Penicillins Allergy Mild ALGY-Rash Verified 03/28/25 20:10 PFSH ED PFSH: Medical History Vitamin D deficiency 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 Hx of fracture of arm Surgical History Hx of tubal ligation 2019 delivery delivered X 3 with tubal in 2019 Family History Grandmother Heart disease Ovarian cancer Uterine cancer Other Breast cancer Cervical cancer Denies family history of Colon cancer Diabetes Hyperlipidemia Hypertension Thyroid disease Stroke Social History Smoking and tobacco/nicotine status: current every day tobacco/nicotine user cigarettes Packs smoked per day: 0.25 and e-cigarettes E-Cigarette Details: vaporizer device and with nicotine Alcohol intake: current Alcohol intake frequency: holidays/special occasions only Substance/Drug Use: current Substance/Drug use frequency: Special occassions/opportunity only Household members: significant other Number of children: 3 Female Reproductive History: Date of last menstrual period: 03/25/25 Physical Exam Const: COMMON NORMALS: no acute distress GENERAL APPEARANCE: cooperative; not ill appearing and not frail appearing HENMT: COMMON NORMALS: normocephalic, atraumatic and Normal external nose present HEAD & SCALP: normocephalic and atraumatic FACE & SINUS: normal facial exam and face symmetric NOSE: Normal external nose present and Abnormal mucous membranes and turbinates present (Swollen) boggy Eye: COMMON NORMALS: Equal, round and reactive pupils present and EOMs intact bilaterally PUPIL: Yes Equal, round and reactive pupils present Neck/C-Spine: GENERAL: Yes trachea midline Chest: CHEST: Yes Symmetrical chest wall rise Resp: COMMON NORMALS: normal respiratory effort, No retractions, No use of accessory muscles and clear to auscultation bilaterally AUSCULTATION: clear to auscultation bilaterally Cardio: COMMON NORMALS: regular rate and regular rhythm RATE: regular rate RHYTHM: regular rhythm Extremity: COMMON NORMALS: no pedal edema Neuro: RAMÓN COMA SCALE: document GCS findings Ramón coma scale eye opening: Spontaneous [place] coma scale verbal response: Orientated [place] coma scale motor response: Obey commands Ramón coma scale total score: 15 SENSORY EXAM: Yes extremities (intact) Psych: COMMON NORMALS: speech normal SPEECH: Yes normal speech Skin: NARRATIVE SKIN EXAM: Urticaria present upper extremities, neck. Course Vital Signs: Vital signs: Vital Signs Temperature 98.2 F 03/28/25 20:07 Pulse Rate 87 03/28/25 22:40 Respiratory Rate 16 03/28/25 22:40 Blood Pressure 109/58 03/28/25 22:40 Pulse Oximetry 96 03/28/25 22:40 Oxygen Delivery Me thod Room Air 03/28/25 21:39 MDM - Allergic Reaction Medical Decision Making The patient did not want to take steroids as above. We elected to not give steroids initially at least. She improved significantly with administration of IV Benadryl and Pepcid. She did not require epinephrine. With her improvement, she will be discharged on Zyrtec, Benadryl, and Pepcid. Will elect not to use steroids at this point. She will return for return of or worsening symptoms. She will be prescribed an EpiPen given the fact That she had some airway symptoms. She knows to use this if she gets airway symptoms again, and to come in the emergency department following use. No radiology studies performed this visit Discharge Plan Discharge Patient Disposition: Home Clinical Impression: Allergic reaction, Urticaria Condition: Stable Prescriptions: New cetirizine [Zyrtec] 10 mg tablet 10 mg PO DAILY Qty: 7 0RF famotidine [Pepcid] 20 mg tablet 20 mg PO Q12H Qty: 14 0RF diphenhydramine HCl [Benadryl] 25 mg capsule 25 mg PO Q6H Qty: 20 0RF epinephrine [EpiPen] 0.3 mg/0.3 mL auto-injector 0.3 mg IM Q20M PRN (Reason: anaphylaxis) Qty: 1 1RF Rx Instructions: for 2 doses Discharge Orders: Discharge ED (Routine); Ordered 03/28/25 Ordered By: Thor Nuñez Referrals: Osmin Sanderson NP [Primary Care Provider, Family Practice] - 1-3 days Patient Instructions: Allergic Reaction, Urticaria (ED), Opioid Safety, Pain Management, Patient Portal & Leonie Instructions Activity Restrictions/Additional Instructions: Take medication scheduled for the next 2 to 3 days as directed. Use your EpiPen should you get another reaction causing significant airway problems such as throat tightening, trouble breathing, swelling of the tongue, etc. If you use your EpiPen, you should present to the emergency department for monitoring and further treatment. Print Language: Azeri Coding Level of Care Code ED Collection Systems Technician for David Castro
[2025-03-28 22:40] VITALS: BP 109/58; PULSE 87; RESP 16; O2SAT 96
== END 2025-03-28 22:41 | disposition home or self-care (01) ==
PROVIDERS: Emergency Provider Emergency Medicine; PCP Clinical Nurse Specialist Adult Health
DX: T78.40XA Allergy, unspecified, initial encounter (principal); L50.9 Urticaria, unspecified; F17.210 Nicotine dependence, cigarettes, uncomplicated; X58.XXXA Exposure to other specified factors, initial encounter
CPT/HCPCS: 96374; 96375; 99284; J1200; J2765; J3490